=== PATIENT | male | born 1960 | race African-American/Black ===

== ENCOUNTER 2017-01-16 15:11 | Inpatient (IN) ==
--- NOTE | 2017-01-15 21:38 | Discharge Summary ---
<America Day - Last Filed: 01/15/17 21:35> Date of Encounter: 01/15/17 - Discharge Diagnosis (1) Arthritis of left hip Priority: Primary Status: Acute (2) HTN (hypertension) Priority: Secondary Status: Chronic Qualifiers: Hypertension type: essential hypertension Qualified Code(s): I10 - Essential (primary) hypertension (3) Obesity Priority: Secondary Status: Chronic Qualifiers: Obesity type: unspecified obesity type Obesity severity: morbid Qualified Code(s): E66.01 - Morbid (severe) obesity due to excess calories (4) HLD (hyperlipidemia) Priority: Secondary Status: Chronic Qualifiers: Hyperlipidemia type: unspecified Qualified Code(s): E78.5 - Hyperlipidemia , unspecified - Discharge Medications Home Medications: Allopurinol [Zyloprim 100 MG] 100 mg PO DAILY 01/16/17 [History] Atenolol/Chlorthalidone [Tenoretic 50 Tablet] 1 each PO DAILY 01/16/17 [History] Atorvastatin Calcium [Lipitor] 20 mg PO HS 01/16/17 [History] Ergocalciferol (VITAMIN D2) [Vitamin D2] 50,000 unit PO QWEEK 01/16/17 [History] Allergies/Adverse Reactions: Allergies codeine Allergy (Verified 01/16/17 16:15) See Comments unknown Primary care physician: Barb Humphreys CNP - Patient Status Disposition: Home, Self-Care Condition: Good - Discharge Instructions Follow Up With: Yang Dewey MD [Partnered Physician] - 02/14/17 8:50 am America Day PAC [Physician Container Repairer] - 01/26/17 3:00 pm Barb Humphreys CNP [Primary Care Provider] - Additional Instructions: Discharge Instructions: Total Hip Replacement Please call [facility] ([phone]), your Primary Care Physician, or report to the Emergency Room if you have any of the following symptoms: Nausea, vomiting, fever greater that 101.5, swelling, chest pain, shortness of breath, increased pain/redness/drainage/odor for your incision site, numbness/ tingling, or any other concerning symptoms. ACTIVITY:Weight-bearing as tolerated for 8 weeks with hip dislocation precautions that physical therapy taught you. You may progress as tolerated under the guidance of your physical therapist. You do not need to sleep with a pillow between your legs. You can also seep on the operative side or on your stomach. MEDICATIONS: Upon discharge resume your home medications. Take all the medications as prescribed. Take a stool softener if taking narcotic pain medications. Stool softeners are only effective if you drink enough fluids. Drink 6-8 glass of water or fluids a day, unless this is not allowed for another health problem. Despite using stool softeners, if you haven't had a bowel movement in 3 days, please switch to a gentle laxative. Gentle laxatives are sold over the counter. You should have a bowel movement within 24 hours, if not call the office. You will be discharged from the hospital with a prescription for pain medication. You are encouraged to decrease the use of narcotic pain medication as tolerated. Should you require a refill, please call the office. [facility] prescribes narcotic pain medication for only 4-6 weeks after surgery. If you require pain medication beyond this time period, you may be referred to your Primary Care Physician or to the Pain Clinic for further evaluation. Plan ahead for refills on pain medication as many narcotics either need to be picked up at the office or mailed. It is best to call 48-72 hours in advance of needing a prescription refill so you don't run out of medication. To help control the post-operative pain, you may take NSAIDs (Aleve,Advil, Motrin, ibuprofen, naprosyn) or Tylenol as prescribed on the bottle in addition to the pain medication. ANTICOAGULATION (blood thinners): Continue your Aspirin, Lovenox or Coumadin as prescribed to help prevent a blood clot in the leg or in the lungs. As long as your incision remains dry and you tolerate the NSAIDs (Aleve, Advil, Motrin, Ibuprofen, Naprosyn), it is OK to use the NSAIDS while you are taking your anticoagulation medication. Should your incision start to drain, stop the NSAID and contact our office. Common symptoms of blood clot in the legs include: localized pain, swelling, calf tenderness, redness or discoloration of the skin. Blood clot in the lung symptoms include: shortness of breath, rapid pulse, sweating, and chest pain that worsens with deep breathing, coughing up blood, lightheadedness, feelings of anxiety. If you experience any of these symptoms notify your physician immediately, go to the emergency room, or if having trouble breathing, call 911. WOUND CARE: Leave the dressing on for 7 to 10days. You may change the dressing if it is saturated greater than 50%. Do not get the dressing wet at anytime. Wash your hands with antibacterial soap, rinse and dry prior to any wound care. If you have fabio the visiting nurse or rehab facility can remove the stapes 10-14 days after surgery and place steri-strips across the wound. Leave the steri-strips in place until they fall off on their own. You may let water from the shower run on top of the steri-strips. If you do not have a visiting nurse or rehab facility, you will need to return to the office at 10-14 days for the fabio to be removed. If you have itching or redness around the dressing call the office. FOLLOW-UP: Please follow up with your surgeon in the orthopedic clinic in 6 weeks from the day of surgery. If you have fabio that need to be removed, you will need to come back to the office in 10-14 days from the day of surgery. - Hospital Course Hospital course: Mr. Gallardo is a 56 year old male - Time Spent with Patient Total time spent providing and/or coordinating discharge services: <Yang Dewey - Last Filed: 01/18/17 08:06> Date of Encounter: 01/18/17 Time of Encounter: 08:06 - Discharge Diagnosis (1) Arthritis of left hip Priority: Primary Status: Acute (2) HTN (hypertension) Priority: Secondary Status: Chronic Qualifiers: Hypertension type: essential hypertension Qualified Code(s): I10 - Essential (primary) hypertension (3) Obesity Priority: Secondary Status: Chronic Qualifiers: Obesity type: unspecified obesity type Obesity severity: morbid Qualified Code(s): E66.01 - Morbid (severe) obesity due to excess calories (4) HLD (hyperlipidemia) Priority: Secondary Status: Chronic Qualifiers: Hyperlipidemia type: unspecified Qualified Code(s): E78.5 - Hyperlipidemia , unspecified (5) Chronic renal insufficiency, stage III (moderate) Priority: Secondary Status: Chronic Primary care physician: Barb Humphreys CNP - Patient Status Functional capacity at discharge: uses cane/walker Overall status at discharge: patient is progressing back to baseline - Hospital Course Hospital course: Mr. Gallardo is a 56 year old male The patient had an uneventful postoperative course. They received antibiotics and physical therapy and were discharged in stable condition. There will follow -up in the office in 2 weeks. Aspirin DVT prophylaxis - Time Spent with Patient Total time spent providing and/or coordinating discharge services:
--- NOTE | 2017-01-16 15:20 | History & Physical Report ---
Date of Encounter: 01/16/17 Time of Encounter: 15:19 24 Hour HP Update - Instructions Instructions: If the History and Physical is less than 30 days old and was completed prior to A.M. admission and or procedure and has NOT been updated on calendar day of procedure please complete this update prior to performing procedure. - Update Patient reports changes in Medical Condition: No Changes in examination, assessment, or condition: No Changes in Medication: No Preop tests/diagnostics Reviewed: Yes Surgery Remains Indicated: Yes Consent for Planned Operative Procedure(s) Verified: Yes - Pre-Operative Checklist Preoperative Checklist Indicated: No Prophylactic Antibiotic Ordered: Yes Is VTE Prophylaxis Indicated?: Yes
[2017-01-16] MEDS ORDERED: Lidocaine -MPF 1% 2 ML VIAL ID ONE (15:34)
[2017-01-16] MEDS ORDERED: CeFAZolin Pre 3,000 MG/100 ML 3,000 MG/100 ML BAG IVPB ONE (15:34)
[2017-01-16] MEDS ORDERED: Famotidine 20 MG/2 ML VIAL IVP ONE (15:38)
[2017-01-16] MEDS ORDERED: Gabapentin 300 MG CAPSULE PO ONE (15:38)
[2017-01-16] MEDS ORDERED: Ondansetron 4 MG/2 ML VIAL ONE (15:39)
[2017-01-16] MEDS ORDERED: *HR* Succinylcholine 200 MG/10 ML VIAL IVP ONE (15:39)
[2017-01-16] MEDS ORDERED: Lidocaine -MPF 4% 5 ML AMPUL ONE (15:39)
[2017-01-16] MEDS ORDERED: *HR* FentaNYL (PF) 100 MCG/2 ML VIAL ONE ×2 (15:39→16:57)
[2017-01-16] MEDS ORDERED: *HR* Propofol 200 MG/20 ML VIAL IVP ONE (15:39)
[2017-01-16] MEDS ORDERED: Lidocaine -MPF 2% 2 ML VIAL ONE (15:39)
[2017-01-16] MEDS ORDERED: Dexamethasone 4 MG/ML VIAL ONE (15:39)
[2017-01-16] MEDS ORDERED: *HR* Midazolam HCl 2 MG/2 ML VIAL ONE (15:39)
[2017-01-16] MEDS ORDERED: Ringers Solution, Lactated 1,000 ML IVC SCH ×2 (15:45→20:38)
--- NOTE | 2017-01-16 15:53 | Anesthesia Evaluation PreOp ---
Date of Encounter: 01/16/17 Time of Encounter: 15:51 - Past History Planned Operation: l ignacia Cardiac History: HTN Pulmonary History: Denies Any Significant HX HAND OR MACHINE PASTER History: Denies Any Significant HX Other Medical History: Renal (cri) Anesthesia History: No Prior Anesthetic Complications, Past Anesthesia (r ignacia, bilat knee arth) Alcohol Use: none Drug use: none Medications and Allergies Aspirin Enteric Coated [Aspirin EC] 325 mg PO DAILY #21 tablet. 01/15/17 [Rx] OxyCODONE Immed Rel [Roxicodone 5 MG] 5 - 10 mg PO Q6HR PRN #40 tablet 01/15/17 [Rx] Allergies codeine Allergy (Unverified 01/05/17 13:38) See Comments unknown - Meds/Allergy Pre-op Review Medications Reviewed: Yes Allergies Reviewed: Yes Beta Blockers on Current Med List: Yes If Beta Blockers taken, Date/Time (Last Dose taken): atenolol at 1500 Anesthesia Results - Labs Laboratory Tests 01/05/17 01/05/17 01/05/17 14:00 14:00 14:00 Hgb 14.3 Hct 45.2 Plt Count 283 PT 11.2 INR 1.0 APTT 31.5 Sodium 141 Potassium 4.0 Creatinine 1.92 H - Imaging EKG: report reviewed (sr, mod ivcd) Anesthesia Exam O2 Sat Height 1.83 m Height 1.83 m Weight 164.711 kg Weight 164.711 kg O2 Sat by Pulse Oximetry 96 Vital Signs Temp Pulse Resp BP Pulse Ox 98.1 F 69 16 142/89 96 01/16/17 16:00 01/16/17 16:00 01/16/17 16:00 01/16/17 16:00 01/16/17 16:00 Height: 1.83 Weight: 164 NPO (# of Hours): >8 - HEENT Pupil (Motor): Pupils equal, EOMI Mallampati: II Teeth: Poor dentition Oral Opening: Greater than 3 - HAND OR MACHINE PASTER LOC: Oriented HAND OR MACHINE PASTER Motor: Normal RUE, Normal LUE, Normal RLE, Normal LLE, Normal Face HAND OR MACHINE PASTER Sensory: Normal: RUE, LUE, RLE, LLE, Face - Cardiac Rhythm: Regular Murmur: None - Pulmonary Breath Sounds: bilateral Clear Respiratory Effort: Symmetrical Anesthesia Assess/Plan ASA Score: 3 Modified Twining Scale for Level of Consciousness: Cooperative, oriented, and tranquil Anesthetic Plan: General Monitoring Plan: Standard Monitors Recovery Plan: PACU
[2017-01-16] MEDS ORDERED: *HR* HYDROmorphone 2 MG/ML SYRINGE ONE (17:19)
[2017-01-16] MEDS ORDERED: *HR* HYDROmorphone (PF) 1 MG/ML SYRINGE IVP PRN ×2 (17:25→20:38)
[2017-01-16] MEDS ORDERED: Ondansetron 4 MG/2 ML VIAL IVP PRN ×2 (17:25→20:38)
[2017-01-16] MEDS ORDERED: *HR* Enoxaparin 30 MG/0.3 ML SYRINGE SQ SCH (18:00)
--- NOTE | 2017-01-16 18:20 | Orthopedic Operative Note ---
Date of procedure: 01/16/17 Pre-op diagnosis: Left hip arthritis Post-op diagnosis: same (Morbid obesity) Procedure: Procedure: Left Total Hip Replacment Estimated blood loss: 1000 cc Hardware: Biomet DM Cup: 58 G7 fin cup Femoral size15 echo full profile lateralized stem Head: 6 head with Melody Procedural Notes: Grade 4 arthritic changes femoral head and acetabulum, massive morbid obesity Operative procedure: The patient was brought to the operating room and placed on the operating room table. After general anesthesia was administered the patient was placed in the lateral decubitus position with the operative leg up. All pressure points were padded appropriately and the head was stabilized in the neutral position. The operative extremity was prepped and draped in the sterile surgical fashion patient received IV antibiotic prior to skin incision. A standard posterior approach is made to the operative hip, the incision was made through the skin and subcutaneous tissue hemostasis was obtained with Bovie cautery. Using careful sharp dissection the fascia was identified and incised exposing the external rotators. The external rotators were released off the greater trochanter and tagged with #2 FiberWire suture. The capsule was T'd open and the hip was brought into internal rotation. Patient noted to have grade 4 arthritic changes femoral head. The femoral neck cut was made at the appropriate level. An anterior capsulotomy was performed for the anterior retractor. Soft tissues removed from the acetabulum. Patient noted to have grade 4 arthritic changes acetabulum. Acetabulum was first reamed medially, and then reamed in 15 degrees of anteversion and 45 degrees off the horizontal. It was reamed up to the appropriate size 58. The appropriate-sized 58 acetabular cup was impacted in place in 15 degrees of anteversion and 45 degrees off the horizontal. This had good fit and fixation. The hip was brought back in to internal rotation and prepared with the spreader box operator followed by the canal finder followed by broaching process in 20 degrees anteversion. It was broached up to the appropriate size 15. The femoral implant was impacted in place in 20 degrees of anteversion. Trial reduction found the hip to be stable with 6 head and Melody. The trials were removed and the real implants were impacted in place. The hip was reduced, patient had apparent equal leg lengths. The hip had excellent stability with forward flexion to 90 degrees adduction of 30 degrees and internal rotation of 60 degrees. The hip had no shuck. The hips after 2 minutes with a Betadine saline solution. It was irrigated out with 2 L of pulse irrigation. The external rotators were reattached to drill holes in the greater trochanter. Fascia was closed with a running #2 PDS suture. The deep tissue was irrigated and closed deep with #1 PDS suture superficially with 0 PDS suture and skin was closed with Dermabond and skin fabio. The patient was placed in a sterile dressing and abduction pillow. The patient was extubated and transferred to the recovery room in stable condition. Anesthesia: VALORIE Surgeon: Yang Dewey Wharf Laborer: America Day Condition: stable Disposition: PACU
[2017-01-16] MEDS ORDERED: Ketorolac 30 MG/ML VIAL ONE (19:05)
[2017-01-16] MEDS ORDERED: Acetaminophen IV 1,000 MG/100 ML INFUS..BTL ONE (19:06)
[2017-01-16 19:22] LABS: Hematocrit 40.7 % (37.5-50.1); Hemoglobin 12.4 g/dL (12.9-16.9)
--- NOTE | 2017-01-16 20:03 | Anesthesia Evaluation Post Op ---
Date of Encounter: 01/16/17 Time of Encounter: 19:45 - Vital Signs Vital Signs: Vital Signs/O2 Sat/Glucose, Most Current Temp Pulse Resp BP Pulse Ox 01/16/17 19:35 62 16 133/96 99 01/16/17 19:25 62 16 143/93 96 01/16/17 19:15 97.9 F 65 16 123/72 96 01/16/17 19:05 67 16 114/81 96 01/16/17 18:55 68 16 96/75 96 01/16/17 18:45 97.1 F L 68 16 110/88 96 - Lungs Lungs: Clear Ascult./Percussion - Airway Airway: Non-obstructed - Cardiovascular Regular Rate - Mental Status Mental Status: Asleep with brisk response to light stimulation - Pain Pain Scale: 1 Pain Scale used: Crews-Houser (Faces) - Nausea Vomiting Nausea Vomiting: Not Present - Hydration Hydration: Tolerates oral liquids, Has not voided - Discharge PostOp Status: Transfer Patient to floor Anes Supervising Prov Stmt: PT seen/evaluated, VSS And pt has met criteria for discharge to home. - MD Eleuterio
[2017-01-16] MEDS ORDERED: *HR* OxyCODONE Immed Rel 5 MG TABLET PO PRN ×2 (20:38)
[2017-01-16] MEDS ORDERED: ceFAZolin 3,000 MG in D5% in Water 100 ML IVPB SCH (20:38)
[2017-01-16] MEDS ORDERED: Sennosides 8.6 MG TABLET PO PRN (20:38)
[2017-01-16] MEDS ORDERED: Temazepam 15 MG CAPSULE PO PRN (20:38)
[2017-01-16] MEDS ORDERED: Naloxone 0.4 MG/ML INJ IVP PRN (20:38)
[2017-01-16] MEDS ORDERED: MOM Conc 10 ML UD.LIQ PO PRN (20:38)
[2017-01-16] MEDS: Cholecalciferol (D-3) 1,000 UNIT TABLET PO SCH ×2 (21:58→22:01)
[2017-01-16] MEDS: Ascorbic Acid 500 MG TABLET PO SCH (21:58)
[2017-01-16] MEDS: ceFAZolin 3,000 MG in D5% in Water 100 ML IVPB SCH (22:02)
[2017-01-17] MEDS: ceFAZolin 3,000 MG in D5% in Water 100 ML IVPB SCH (05:41)
[2017-01-17] MEDS: *HR* Enoxaparin 30 MG/0.3 ML SYRINGE SQ SCH ×2 (05:42→17:08)
--- NOTE | 2017-01-17 06:22 | Orthopedics Progress Note ---
Date of Encounter: 01/17/17 Time of Encounter: 06:22 - Assessment and Plan (1) Arthritis of left hip Current Visit: Yes Status: Acute (2) HTN (hypertension) Current Visit: Yes Status: Chronic Qualifiers: Hypertension type: essential hypertension Qualified Code(s): I10 - Essential (primary) hypertension (3) Obesity Current Visit: Yes Status: Chronic Qualifiers: Obesity type: unspecified obesity type Obesity severity: morbid Qualified Code(s): E66.01 - Morbid (severe) obesity due to excess calories (4) HLD (hyperlipidemia) Current Visit: Yes Status: Chronic Qualifiers: Hyperlipidemia type: unspecified Qualified Code(s): E78.5 - Hyperlipidemia , unspecified Subjective Interval history: Patient was seen this morning doing well without complaints. Afebrile vital signs stable. Operative extremity: Neurovascularly intact Dressing clean dry and intact Calves nontender Assessment and plan: Continue with postoperative care Hematocrit 40 Objective Vital signs: Vital Signs Temp Pulse Resp BP Pulse Ox 01/17/17 05:18 97.7 F 55 15 147/74 99 01/17/17 00:04 97.7 F 54 16 141/91 96 01/16/17 22:25 97.9 F 62 14 112/73 97 01/16/17 21:30 98 F 57 16 122/61 96 01/16/17 21:10 97.8 F 59 16 122/64 96 01/16/17 21:03 97.9 F 58 12 126/61 01/16/17 20:35 97.9 F 58 12 126/61 94 01/16/17 19:45 97.9 F 62 16 123/74 96 01/16/17 19:35 62 16 133/96 99 01/16/17 19:25 62 16 143/93 96 01/16/17 19:15 97.9 F 65 16 123/72 96 01/16/17 19:05 67 16 114/81 96 01/16/17 18:55 68 16 96/75 96 01/16/17 18:45 97.1 F L 68 16 110/88 96 01/16/17 16:00 98.1 F 69 16 142/89 96 Intake and Output 01/16/17 01/16/17 01/17/17 15:59 23:59 07:59 Intake Total 300 / 300 430 / 430 Output Total 1000 / 1000 Balance -700 / -700 430 / 430 Intake: IV Fluids 300 / 300 Ofirmev 1,000 mg/100 ml 1 100 / 100 ,000 mg In 100 ml As . ROUTE .STK-MED ONE Rx#: [id number] Ancef 3,000 MG In 100 / 100 Dextrose 5% 100 ML @ 200 mls/hr IVPB Q8H IZA Rx#: [id number] Ancef Premix 3,000 MG/100 100 / 100 ML 3,000 mg In 100 ml @ 200 mls/hr IVPB PREOP ONE Rx#:[id number] Oral 430 / 430 Output: Estimated Blood Loss 1000 / 1000 Other: Weight 164.711 kg 164.711 kg - Labs CBC & BMP: 01/16/17 19:11 Labs: Abnormal lab results Hgb 12.4 g/dL (12.9-16.9) L 01/16/17 19:11 - VTE Documentation of Mechanical Device: Venous foot pump, device Consult Discharge Plan - Plan Referrals: Barb Humphreys CNP [Primary Care Provider] -
[2017-01-17 06:35] LABS: Hematocrit 39.1 % (37.5-50.1)
[2017-01-17 06:39] LABS: Calcium 9.3 mg/dL (8.6-10.8); Potassium 4.9 mEq/L (3.5-4.5)
[2017-01-17] MEDS: Multivit/Ca/Min/Fe/FA 1 TAB TABLET PO SCH (07:23)
[2017-01-17] MEDS: Ascorbic Acid 500 MG TABLET PO SCH ×2 (07:23→17:07)
[2017-01-17] MEDS: Cholecalciferol (D-3) 1,000 UNIT TABLET PO SCH ×2 (22:55)
[2017-01-18 05:25] LABS: Hematocrit 32.8 % (37.5-50.1)
[2017-01-18 05:26] LABS: Hemoglobin 10.3 g/dL (12.9-16.9)
[2017-01-18] MEDS: *HR* Enoxaparin 30 MG/0.3 ML SYRINGE SQ SCH (05:28)
[2017-01-18 05:35] LABS: Calcium 9.4 mg/dL (8.6-10.8); Potassium 3.7 mEq/L (3.5-4.5)
[2017-01-18] MEDS: Multivit/Ca/Min/Fe/FA 1 TAB TABLET PO SCH (07:52)
[2017-01-18] MEDS: Ascorbic Acid 500 MG TABLET PO SCH (07:52)
--- NOTE | 2017-01-18 08:07 | Orthopedics Progress Note ---
Date of Encounter: 01/18/17 Time of Encounter: 08:07 - Assessment and Plan (1) Arthritis of left hip Current Visit: Yes Status: Acute (2) HTN (hypertension) Current Visit: Yes Status: Chronic Qualifiers: Hypertension type: essential hypertension Qualified Code(s): I10 - Essential (primary) hypertension (3) Obesity Current Visit: Yes Status: Chronic Qualifiers: Obesity type: unspecified obesity type Obesity severity: morbid Qualified Code(s): E66.01 - Morbid (severe) obesity due to excess calories (4) HLD (hyperlipidemia) Current Visit: Yes Status: Chronic Qualifiers: Hyperlipidemia type: unspecified Qualified Code(s): E78.5 - Hyperlipidemia , unspecified (5) Chronic renal insufficiency, stage III (moderate) Current Visit: Yes Status: Chronic Subjective Interval history: Patient was seen this morning doing well without complaints. Afebrile vital signs stable. Operative extremity: Neurovascularly intact Dressing clean dry and intact Calves nontender Assessment and plan: Continue with postoperative care Hematocrit 32 discharged today Objective Vital signs: Vital Signs Temp Pulse Resp BP Pulse Ox 01/18/17 06:58 98.9 F 64 16 127/73 96 01/18/17 03:40 99.0 F 66 12 132/69 95 01/17/17 23:32 99.7 F H 72 16 148/52 96 01/17/17 19:41 99.5 F 01/17/17 19:27 100.5 F H 77 16 124/63 97 01/17/17 15:50 99.4 F 68 18 130/80 97 01/17/17 11:20 98.6 F 59 18 126/72 99 Intake and Output 01/17/17 01/18/17 01/18/17 23:59 07:59 15:59 Intake Total 600 / 600 670 / 670 Output Total 750 / 750 950 / 950 Balance -150 / -150 -280 / -280 Intake: Oral 600 / 600 670 / 670 Output: Urine 750 / 750 950 / 950 Other: Meal Dinner Percent of Meal Consumed 80% - Labs CBC & BMP: 01/18/17 04:03 01/18/17 04:03 Labs: Abnormal lab results Hgb 10.3 g/dL (12.9-16.9) L D 01/18/17 04:03 Hct 32.8 % (37.5-50.1) L 01/18/17 04:03 BUN 44 mg/dL (8-26) H D 01/18/17 04:03 Creatinine 2.35 mg/dL (0.72-1.25) H 01/18/17 04:03 Est GFR ( Amer) 35 (> 60) L 01/18/17 04:03 Est GFR (Non-Af Amer) 29 (> 60) L 01/18/17 04:03 Glucose 133 mg/dL (70-99) H 01/18/17 04:03 Calculated Osmolality 301 (280-300) H 01/18/17 04:03 - VTE Documentation of Mechanical Device: Venous foot pump, device Consult Discharge Plan - Plan Additional Instructions: Discharge Instructions: Total Hip Replacement Please call [facility] ([phone]), your Primary Care Physician, or report to the Emergency Room if you have any of the following symptoms: Nausea, vomiting, fever greater that 101.5, swelling, chest pain, shortness of breath, increased pain/redness/drainage/odor for your incision site, numbness/ tingling, or any other concerning symptoms. ACTIVITY:Weight-bearing as tolerated for 8 weeks with hip dislocation precautions that physical therapy taught you. You may progress as tolerated under the guidance of your physical therapist. You do not need to sleep with a pillow between your legs. You can also seep on the operative side or on your stomach. MEDICATIONS: Upon discharge resume your home medications. Take all the medications as prescribed. Take a stool softener if taking narcotic pain medications. Stool softeners are only effective if you drink enough fluids. Drink 6-8 glass of water or fluids a day, unless this is not allowed for another health problem. Despite using stool softeners, if you haven't had a bowel movement in 3 days, please switch to a gentle laxative. Gentle laxatives are sold over the counter. You should have a bowel movement within 24 hours, if not call the office. You will be discharged from the hospital with a prescription for pain medication. You are encouraged to decrease the use of narcotic pain medication as tolerated. Should you require a refill, please call the office. [facility] prescribes narcotic pain medication for only 4-6 weeks after surgery. If you require pain medication beyond this time period, you may be referred to your Primary Care Physician or to the Pain Clinic for further evaluation. Plan ahead for refills on pain medication as many narcotics either need to be picked up at the office or mailed. It is best to call 48-72 hours in advance of needing a prescription refill so you don't run out of medication. To help control the post-operative pain, you may take NSAIDs (Aleve,Advil, Motrin, ibuprofen, naprosyn) or Tylenol as prescribed on the bottle in addition to the pain medication. ANTICOAGULATION (blood thinners): Continue your Aspirin, Lovenox or Coumadin as prescribed to help prevent a blood clot in the leg or in the lungs. As long as your incision remains dry and you tolerate the NSAIDs (Aleve, Advil, Motrin, Ibuprofen, Naprosyn), it is OK to use the NSAIDS while you are taking your anticoagulation medication. Should your incision start to drain, stop the NSAID and contact our office. Common symptoms of blood clot in the legs include: localized pain, swelling, calf tenderness, redness or discoloration of the skin. Blood clot in the lung symptoms include: shortness of breath, rapid pulse, sweating, and chest pain that worsens with deep breathing, coughing up blood, lightheadedness, feelings of anxiety. If you experience any of these symptoms notify your physician immediately, go to the emergency room, or if having trouble breathing, call 911. WOUND CARE: Leave the dressing on for 7 to 10days. You may change the dressing if it is saturated greater than 50%. Do not get the dressing wet at anytime. Wash your hands with antibacterial soap, rinse and dry prior to any wound care. If you have fabio the visiting nurse or rehab facility can remove the stapes 10-14 days [address] surgery [address] steri-strips across the wound. Leave the steri-strips in place until they fall off on their own. You may let water from the shower run on top of the steri-strips. If you do not have a visiting nurse or rehab facility, you will need to return to the office at 10-14 days for the fabio to be removed. If you have itching or redness around the dressing call the office. FOLLOW-UP: Please follow up with your surgeon in the orthopedic clinic in 6 weeks from the day of surgery. If you have fabio that need to be removed, you will need to come back to the office in 10-14 days from the day of surgery. Referrals: Yang Dewey MD [Partnered Physician] - 02/14/17 8:50 am America Day PAC [Physician Side Stitching Machine Operator] - 01/26/17 3:00 pm Barb Humphreys CNP [Primary Care Provider] -
[2017-01-18 11:12] VITALS: BP 123/72
== END 2017-01-18 12:26 | disposition home or self-care (01) | DRG 470 ==
LOC: SAMDAY 15:11 → 3NENU 20:06
PROVIDERS: ADMIT Orthopaedic Surgery; ATTEND Orthopaedic Surgery

== ENCOUNTER 2017-08-14 07:42 | Inpatient (IN) ==
[2017-08-14 09:29] LABS: Basophils # 0.1 K/mcL (0.0-0.2); Basophils % 0.7 %; Eosinophils # 0.2 K/mcL (0.0-0.6); Eosinophils % 2.8 %; Hematocrit 42.6 % (37.5-50.1); Hemoglobin 13.2 g/dL (12.9-16.9); Immature Granulocytes % 0.5 % (0-4); Lymphocytes # 2.2 K/mcL (0.6-4.6); Mean Corpuscular Hemoglobin 24.5 pg (28.0-33.3); Monocytes # 0.6 K/mcL (0.0-1.3); Neutrophils # 4.4 K/mcL (1.6-8.9); Platelet Count 276 K/mcL (140-400); Red Blood Count 5.39 M/mcL (4.19-5.50); Red Cell Distribution Width 17.5 % (11.5-14.5)
[2017-08-14 09:36] LABS: INR 1.1; Prothrombin Time 11.7 Seconds (9.4-12.1)
[2017-08-14 09:41] LABS: Calcium 10.3 mg/dL (8.6-10.8); Potassium 3.5 mEq/L (3.5-4.5)
--- NOTE | 2017-08-14 16:16 | Anesthesia Evaluation PreOp ---
Date of Encounter: 08/14/17 Time of Encounter: 16:02 - Past History Planned Operation: L-Hip Revision Cardiac History: HTN Other Medical History: Renal (CKD - stage I), Other (Gout. MO/BMI = 43) Anesthesia History: Past Anesthesia (R-Hip replacement 2004 ,B-knee scopes 2008) Alcohol Use: none Drug use: none Medications and Allergies Allopurinol [Zyloprim 100 MG] 100 mg PO DAILY 01/16/17 [History] Atenolol/Chlorthalidone [Tenoretic 50 Tablet] 1 each PO DAILY 01/16/17 [History] 3 Allergy/AdvReac Type Severity Reaction Status Date / Time codeine Allergy See Verified 01/16/17 16:15 Comments - Meds/Allergy Pre-op Review Medications Reviewed: Yes Allergies Reviewed: Yes Beta Blockers on Current Med List: No Anesthesia Results - Labs 08/14/17 09:18 08/14/17 09:18 - Imaging EKG: image reviewed (60bpm, SR, moderate intraventricular conduction delay, Non- specific T-wave abnl) Anesthesia Exam O2 Sat Height 1.83 m Weight 164.654 kg Weight 164.654 kg O2 Sat by Pulse Oximetry 98 O2 Sat by Pulse Oximetry 96 Vital Signs Temp Pulse Resp BP Pulse Ox 98.5 F 62 18 134/85 96 08/14/17 08:49 08/14/17 08:49 08/14/17 08:49 08/14/17 08:49 08/14/17 08:49 Height: 6'0" Weight: 363# BMI = 49 - HEENT Pupil (Motor): Pupils equal, EOMI Mallampati: II Teeth: Edentulous (upper edentulous), Poor dentition - INSPECTOR WATCH ASSEMBLY LOC: Oriented INSPECTOR WATCH ASSEMBLY Motor: Normal RUE, Normal LUE, Normal RLE, Normal LLE, Normal Face INSPECTOR WATCH ASSEMBLY Sensory: Normal: RUE, LUE, RLE, LLE, Face - Cardiac Rhythm: Regular Murmur: None - Pulmonary Breath Sounds: bilateral Clear Respiratory Effort: Symmetrical Anesthesia Assess/Plan ASA Score: 3 (MO, Gout,) Modified Tiff Scale for Level of Consciousness: Cooperative, oriented, and tranquil Anesthetic Plan: General Monitoring Plan: Standard Monitors Recovery Plan: PACU Anes Supervising Prov Stmt: Pt seen/evaluated, R&B discussed, questions answered and consent obtained. - MD Eleuterio
[2017-08-14] MEDS ORDERED: Ethanol\\Acetic Acid\\Na Ace\\Ben 1,000 ML IRRIG.SOLN IR ONE (16:18)
[2017-08-14] MEDS ORDERED: *HR* Succinylcholine 200 MG/10 ML VIAL IVP ONE (16:20)
[2017-08-14] MEDS ORDERED: *HR* Midazolam HCl 2 MG/2 ML VIAL ONE (16:20)
[2017-08-14] MEDS ORDERED: *HR* FentaNYL (PF) 100 MCG/2 ML VIAL ONE (16:20)
[2017-08-14] MEDS ORDERED: Lidocaine -MPF 2% 2 ML VIAL ONE (16:20)
[2017-08-14] MEDS ORDERED: Dexamethasone 4 MG/ML VIAL ONE (16:20)
[2017-08-14] MEDS ORDERED: Ondansetron 4 MG/2 ML VIAL ONE (16:20)
[2017-08-14] MEDS ORDERED: *HR* Propofol 200 MG/20 ML VIAL IVP ONE (16:21)
[2017-08-14] MEDS ORDERED: Acetaminophen IV 0 MG/0 ML INFUS..BTL ONE (17:16)
[2017-08-14] MEDS ORDERED: *HR* HYDROmorphone 2 MG/ML SYRINGE ONE (17:40)
[2017-08-14] MEDS ORDERED: Ketamine *HR* 500 MG/10 ML MDV ONE (17:44)
[2017-08-14] MEDS ORDERED: Ondansetron 4 MG/2 ML VIAL IVP ONE (17:56)
[2017-08-14] MEDS ORDERED: Ringers Solution, Lactated 1,000 ML IVC SCH (18:00)
[2017-08-14 19:40] LABS: Basophils # 0.1 K/mcL (0.0-0.2); Basophils % 0.4 %; Eosinophils # 0.3 K/mcL (0.0-0.6); Eosinophils % 1.9 %; Hematocrit 36.5 % (37.5-50.1); Immature Granulocytes % 1.3 % (0-4); Lymphocytes # 2.8 K/mcL (0.6-4.6); Lymphocytes % 21.4 %; Mean Corpuscular Hemoglobin 24.7 pg (28.0-33.3); Mean Corpuscular Volume 79.9 fL (83.0-100.0); Mean Platelet Volume 10.6 fL (9.4-12.4); Monocytes # 0.9 K/mcL (0.0-1.3); Monocytes % 7.1 %; Platelet Count 292 K/mcL (140-400); Red Blood Count 4.57 M/mcL (4.19-5.50); Red Cell Distribution Width 17.2 % (11.5-14.5); Segmented Neutrophils % 67.9 %
[2017-08-14 19:41] LABS: Hemoglobin 11.3 g/dL (12.9-16.9)
--- NOTE | 2017-08-14 19:44 | Orthopedic Operative Note ---
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 Biomet dual mobility: Acetabular cup 66, 7 6.5 screws, [id number] Nicole stem, D 60 mm body +3 head with poly- Procedural Notes: Loose femoral stem and acetabulum protrusion.. Operative procedure: The patient was brought to the operating room and placed on the operating room table. After general anesthesia was administered the patient was placed in the [id number] left side up lateral decubitus position with the operative leg up. All pressure points were padded appropriately and the head was stabilized in the neutral position. The left operative extremity was prepped and draped in the sterile surgical fashion patient received IV antibiotic prior to skin incision. A standard posterior approach is made to the operative hip, through the old incision. The incision was made through the skin and subcutaneous tissue hemostasis was obtained with Bovie cautery. Using careful sharp dissection the fascia was identified and incised patient had significant scar tissue within the posterior aspect. This was resected. Cultures were obtained at the hip joint, normal joint fluid was encountered, the hip was dislocated. Hip was brought into internal rotation. Soft tissue was removed from around the proximal femur. The femoral component was grossly loose. The component was removed without incident. Attention was then turned to the acetabulum. Extensive soft tissue was removed around the acetabulum. Acetabulum was protruded careful use of explant devices were used to remove the acetabular component. There was no obvious defect of the medial wall but it was definitely soft. The hip was reamed in 15 degrees of anteversion and 40 degrees off horizontal up to a size 65. A 66 revision multihole cup was impacted in place in 15 degrees of anteversion and 45 degrees off the horizontal. This had good fixation. Fixation was augmented with 76.5 screws. These were drilled very carefully and there is no flash of bleeding after any screw placed. Patient was stable throughout this portion of the procedure. The liner was impacted in place. Attention was then turned to the femur. The femur was reamed distally up to a size 19 x 150, the stem was impacted in place. Trial reduction with a D 60 cone body revealed the hip to be relocatable. The real D 60 cone body was impacted in place in 20 degrees of anteversion trial reduction revealed excellent stability with a +3 metal head with the appropriate poly-. The trials were removed and the real implants were impacted in place. The hip was reduced, patient had apparent equal leg lengths. The hip had excellent stability with forward flexion to 90 degrees adduction of 30 degrees and internal rotation of 60 degrees. The hip had no shuck. The hips sat for 2 minutes with a Betadine saline solution. It was irrigated out with 2 L of pulse irrigation. The hip was closed by the PA. Fascia was closed with a running #2 PDS suture. The deep tissue was irrigated and closed deep with #1 PDS suture superficially with 0 PDS suture and skin was closed with zip tie and skin fabio. The patient was placed in a sterile dressing and abduction pillow. The patient was extubated and transferred to the recovery room in stable condition. Anesthesia: VALORIE Surgeon: Yang Dewey Diesel Pile Hammer Operator: Jacqueline Vaca Condition: stable Disposition: PACU
[2017-08-14] MEDS: *HR* HYDROmorphone (PF) 1 MG/ML SYRINGE IVP PRN ×2 (20:35→20:46)
[2017-08-14 20:50] LABS: Hematocrit 33.1 % (37.5-50.1); Hemoglobin 10.2 g/dL (12.9-16.9)
--- NOTE | 2017-08-14 21:04 | Anesthesia Evaluation Post Op ---
Date of Encounter: 08/14/17 Time of Encounter: 21:03 - Vital Signs Vital Signs: Vital Signs/O2 Sat, Most Current Temp Pulse Resp BP Pulse Ox 97.7 F 80 21 125/78 95 08/14/17 20:44 08/14/17 20:54 08/14/17 20:54 08/14/17 20:54 08/14/17 20:54 - Lungs Lungs: Clear Ascult./Percussion - Airway Airway: Non-obstructed - Cardiovascular Regular Rate - Mental Status Mental Status: Asleep with brisk response to light stimulation - Pain Pain Scale: 5 Pain Scale used: Numeric (1 - 10) - Nausea Vomiting Nausea Vomiting: Not Present - Hydration Hydration: NPO, Has not voided - Discharge PostOp Status: Transfer Patient to floor
[2017-08-14] MEDS ORDERED: MOM Conc 10 ML UD.LIQ PO PRN (21:36)
[2017-08-14] MEDS ORDERED: *HR* OxyCODONE Immed Rel 5 MG TABLET PO PRN ×2 (21:36)
[2017-08-14] MEDS ORDERED: *HR* HYDROmorphone (PF) 1 MG/ML SYRINGE IVP PRN (21:36)
[2017-08-14] MEDS ORDERED: Naloxone 0.4 MG/ML INJ IVP PRN (21:36)
[2017-08-14] MEDS ORDERED: Temazepam 15 MG CAPSULE PO PRN (21:36)
[2017-08-14] MEDS ORDERED: Sennosides 8.6 MG TABLET PO PRN (21:36)
[2017-08-14] MEDS: Ondansetron 4 MG/2 ML VIAL IVP PRN (23:28)
[2017-08-14] MEDS: Ringers Solution, Lactated 1,000 ML IVC SCH (23:28)
[2017-08-15] MEDS: CeFAZolin Syr 3,000MG/30 ML 3,000 MG/30 ML SYRINGE IVPB SCH ×2 (00:23→08:21)
[2017-08-15 05:09] LABS: Hematocrit 33.8 % (37.5-50.1); Hemoglobin 10.3 g/dL (12.9-16.9)
[2017-08-15 05:18] LABS: Calcium 9.2 mg/dL (8.6-10.8); Potassium 3.9 mEq/L (3.5-4.5)
[2017-08-15] MEDS: Ondansetron 4 MG/2 ML VIAL IVP PRN (07:11)
--- NOTE | 2017-08-15 07:17 | Orthopedics Progress Note ---
Date of Encounter: 08/15/17 Time of Encounter: 07:16 Subjective Interval history: Patient was seen this morning doing well without complaints. Afebrile vital signs stable. Operative extremity: Neurovascularly intact Dressing clean dry and intact Calves nontender Assessment and plan: Continue with postoperative care Hematocrit 33 patient with loosening of acetabulum and femoral component will continue IV antibiotics until cultures results for fear of possible infectious process. Patient will be 50% weightbearing Objective Vital signs: Vital Signs Temp Pulse Resp BP Pulse Ox 08/15/17 03:33 98.0 F 81 16 119/80 98 08/15/17 00:21 97.9 F 81 20 119/76 98 08/14/17 23:24 97.7 F 82 18 115/74 98 08/14/17 22:18 97.6 F 79 18 125/78 99 08/14/17 21:47 97.7 F 80 20 111/72 98 08/14/17 21:18 98.5 F 76 20 118/76 94 08/14/17 21:04 98.3 F 79 20 118/71 95 08/14/17 20:54 80 21 125/78 95 08/14/17 20:44 97.7 F 80 24 123/76 96 08/14/17 20:34 82 24 114/88 98 08/14/17 20:24 87 24 96/58 96 08/14/17 20:14 98.6 F 86 24 114/62 96 08/14/17 10:38 98.4 F 60 18 124/82 98 08/14/17 08:49 98.5 F 62 18 134/85 96 Intake and Output 08/14/17 08/14/17 08/15/17 15:59 23:59 07:59 Intake Total 0 / 0 330 / 330 Output Total 200 / 200 1000 / 1000 450 / 450 Balance -200 / -200 -1000 / -1000 -120 / -120 Intake: IV Fluids 30 / 30 Ancef Syringe 3,000 MG/30 ML 3, 30 / 30 000 mg In 30 ml @ 200 mls/hr IVPB Q8HR [facility] Rx#:[id number] Oral 0 / 0 300 / 300 Output: Urine 200 / 200 0 / 0 350 / 350 Emesis 100 / 100 Estimated Blood Loss 1000 / 1000 Other: Weight 164.654 kg - Labs CBC & BMP: 08/15/17 04:45 08/15/17 04:45 Labs: Abnormal lab results WBC 13.2 K/mcL (4.3-11.1) H D 08/14/17 19:17 Hgb 10.3 g/dL (12.9-16.9) L 08/15/17 04:45 Hct 33.8 % (37.5-50.1) L 08/15/17 04:45 MCV 79.9 fL (83.0-100.0) L 08/14/17 19:17 MCH 24.7 pg (28.0-33.3) L 08/14/17 19:17 MCHC 31.0 g/dL (31.6-35.5) L 08/14/17 19:17 RDW 17.2 % (11.5-14.5) H 08/14/17 19:17 Neutrophils # 9.0 K/mcL (1.6-8.9) H 08/14/17 19:17 Carbon Dioxide 17 mEq/L (19-29) L 08/15/17 04:45 BUN 31 mg/dL (8-26) H 08/15/17 04:45 Creatinine 2.60 mg/dL (0.72-1.25) H 08/15/17 04:45 Est GFR ( Amer) 31 (> 60) L 08/15/17 04:45 Est GFR (Non-Af Amer) 25 (> 60) L 08/15/17 04:45 Glucose 317 mg/dL (70-99) H 08/15/17 04:45 Calculated Osmolality 311 (280-300) H 08/15/17 04:45 - VTE Documentation of Mechanical Device: Venous foot pump, device Consult Discharge Plan - Plan Referrals: Barb Humphreys, AMAYA [Primary Care Provider] -
[2017-08-15] MEDS: Ascorbic Acid 500 MG TABLET PO SCH ×3 (08:23→18:49)
[2017-08-15] MEDS: Multivit/Ca/Min/Fe/FA 1 TAB TABLET PO SCH ×2 (08:23→08:44)
[2017-08-15] MEDS ORDERED: VANCOMYCIN IVPB SCH (09:00)
[2017-08-15] MEDS ORDERED: D5 IVPB SCH (09:00)
[2017-08-15] MEDS ORDERED: Vancomycin (wt based) 1,000 MG VIAL IVPB SCH (09:00)
[2017-08-15] MEDS ORDERED: WATER IVPB SCH (09:00)
[2017-08-15] MEDS ORDERED: Vancomycin 2,000 MG in D5% in Water 500 ML IVPB ONE (09:00)
[2017-08-15] MEDS ORDERED: DAPTOmycin 1,000 MG in 0.9 % Sodium Chloride 100 ML IVPB SCH (10:00)
--- NOTE | 2017-08-15 14:01 | Event Note ---
Date of Encounter: 08/15/17 Time of Encounter: 12:45 PCR- POD#1 LEFT hip revision PCR - Patient seen at bedside. Pain control: Adequate Participating in PT. All questions and concerns addressed. Educated on use of incentive spirometer, ambulation, and hydration. Patient educated on post-operative restrictions and care. Addressed: see above. D/C plan: pending therapy recommendations
[2017-08-15] MEDS: *HR* Enoxaparin 30 MG/0.3 ML SYRINGE SQ SCH ×2 (18:48→19:21)
[2017-08-15] MEDS: Clindamycin 600 MG/50 ML 600 MG/50 ML IV.SOLN IVPB SCH (18:49)
[2017-08-16] MEDS: Clindamycin 600 MG/50 ML 600 MG/50 ML IV.SOLN IVPB SCH ×3 (01:15→18:15)
[2017-08-16] MEDS: Ringers Solution, Lactated 1,000 ML IVC SCH (01:18)
[2017-08-16] MEDS: *HR* Enoxaparin 30 MG/0.3 ML SYRINGE SQ SCH ×2 (05:28→18:15)
[2017-08-16 05:49] LABS: Hematocrit 22.6 % (37.5-50.1)
[2017-08-16 05:56] LABS: Hemoglobin 7.4 g/dL (12.9-16.9)
[2017-08-16 06:12] LABS: Calcium 9.4 mg/dL (8.6-10.8); Potassium 3.3 mEq/L (3.5-4.5)
--- NOTE | 2017-08-16 08:02 | Orthopedics Progress Note ---
Date of Encounter: 08/16/17 Time of Encounter: 08:02 - Assessment and Plan (1) Aseptic loosening of prosthetic hip Current Visit: Yes Status: Chronic Qualifiers: Encounter type: subsequent encounter Qualified Code(s): T84.038D - Mechanical loosening of other internal prosthetic joint, subsequent encounter; Z96.649 - Presence of unspecified artificial hip joint; Z96.649 - Presence of unspecified artificial hip joint (2) Morbid obesity with BMI of 45.0-49.9, adult Current Visit: Yes Status: Chronic (3) S/P revision of total hip Current Visit: Yes Status: Acute (4) Acute blood loss anemia Current Visit: Yes Status: Acute (5) HTN (hypertension) Current Visit: No Status: Chronic Qualifiers: Hypertension type: essential hypertension Qualified Code(s): I10 - Essential (primary) hypertension (6) HLD (hyperlipidemia) Current Visit: No Status: Chronic Qualifiers: Hyperlipidemia type: unspecified Qualified Code(s): E78.5 - Hyperlipidemia , unspecified (7) Chronic renal insufficiency, stage III (moderate) Current Visit: No Status: Chronic Subjective Interval history: Patient was seen this morning doing well without complaints. Afebrile vital signs stable. Operative extremity: Neurovascularly intact Dressing clean dry and intact Calves nontender Assessment and plan: Continue with postoperative care Hematocrit 22 transfuse 2 units Objective Vital signs: Vital Signs Temp Pulse Resp BP Pulse Ox 08/16/17 06:38 98.9 F 91 16 122/69 95 08/16/17 04:23 98.6 F 99 15 155/77 96 08/15/17 23:37 99.2 F 108 16 106/65 97 08/15/17 19:46 98.4 F 102 17 118/60 95 08/15/17 15:58 100.0 F H 95 17 93/53 93 08/15/17 12:30 99.1 F 98 18 117/68 99 08/15/17 11:22 112/69 08/15/17 08:15 99.1 F 90 20 115/68 99 Intake and Output 08/15/17 08/16/17 08/16/17 23:59 07:59 15:59 Intake Total 1050 / 1050 50 / 50 Output Total 475 / 475 Balance 575 / 575 50 / 50 Intake: IV Fluids 1050 / 1050 50 / 50 Lactated Ringers 1,000 ML @ 75 1000 / 1000 mls/hr IVC .[id number] Rx#: [id number] Cleocin Premix 600 MG/50 ML 600 50 / 50 50 / 50 mg In 50 ml @ 50 mls/hr IVPB Q8HR [facility] Rx#:[id number] Output: Urine 475 / 475 - Labs CBC & BMP: 08/16/17 05:26 08/16/17 05:26 Labs: Abnormal lab results WBC 13.2 K/mcL (4.3-11.1) H D 08/14/17 19:17 Hgb 7.4 g/dL (12.9-16.9) L D 08/16/17 05:26 Hct 22.6 % (37.5-50.1) L 08/16/17 05:26 MCV 79.9 fL (83.0-100.0) L 08/14/17 19:17 MCH 24.7 pg (28.0-33.3) L 08/14/17 19:17 MCHC 31.0 g/dL (31.6-35.5) L 08/14/17 19:17 RDW 17.2 % (11.5-14.5) H 08/14/17 19:17 Neutrophils # 9.0 K/mcL (1.6-8.9) H 08/14/17 19:17 Potassium 3.3 mEq/L (3.5-4.5) L 08/16/17 05:26 BUN 38 mg/dL (8-26) H 08/16/17 05:26 Creatinine 2.30 mg/dL (0.72-1.25) H 08/16/17 05:26 Est GFR ( Amer) 36 (> 60) L 08/16/17 05:26 Est GFR (Non-Af Amer) 29 (> 60) L 08/16/17 05:26 Glucose 167 mg/dL (70-99) H 08/16/17 05:26 Creatine Kinase 527 Units/L (30-200) H 08/15/17 04:45 - VTE Documentation of Mechanical Device: Venous foot pump, device Consult Discharge Plan - Plan Referrals: Barb Humphreys CNP [Primary Care Provider] -
--- NOTE | 2017-08-16 08:02 | Discharge Summary ---
Date of Encounter: 08/17/17 Time of Encounter: 08:16 - Discharge Diagnosis (1) Aseptic loosening of prosthetic hip Priority: Primary Status: Chronic Qualifiers: Encounter type: subsequent encounter Qualified Code(s): T84.038D - Mechanical loosening of other internal prosthetic joint, subsequent encounter; Z96.649 - Presence of unspecified artificial hip joint; Z96.649 - Presence of unspecified artificial hip joint (2) Morbid obesity with BMI of 45.0-49.9, adult Priority: Secondary Status: Chronic (3) S/P revision of total hip Priority: Primary Status: Acute (4) Acute blood loss anemia Priority: Primary Status: Acute (5) HTN (hypertension) Priority: Secondary Status: Chronic Qualifiers: Hypertension type: essential hypertension Qualified Code(s): I10 - Essential (primary) hypertension (6) HLD (hyperlipidemia) Priority: Secondary Status: Chronic Qualifiers: Hyperlipidemia type: unspecified Qualified Code(s): E78.5 - Hyperlipidemia , unspecified (7) Chronic renal insufficiency, stage III (moderate) Priority: Secondary Status: Chronic - Discharge Medications Prescriptions: Aspirin Enteric Coated [Aspirin EC] 325 mg PO Q12H #30 tablet. Aspirin Enteric Coated [Aspirin EC] 325 mg PO BID #30 tablet. OxyCODONE Immed Rel [Roxicodone 5 MG] 5 mg PO Q6HR PRN #24 tablet PRN Reason: Pain OxyCODONE Immed Rel [Roxicodone 5 MG] 5 mg PO Q4HR PRN #24 tablet PRN Reason: Pain Sulfamethoxazole/Trimeth DS [Bactrim DS] 1 each PO BID #30 tablet Sulfamethoxazole/Trimeth DS [Bactrim DS] 1 each PO BID #30 tablet Home Medications: Allopurinol [Zyloprim 100 MG] 100 mg PO DAILY 01/16/17 [History] Atenolol/Chlorthalidone [Tenoretic 50 Tablet] 1 each PO DAILY 01/16/17 [History] Aspirin Enteric Coated [Aspirin EC] 325 mg PO BID #30 tablet. 08/17/17 [Rx] Aspirin Enteric Coated [Aspirin EC] 325 mg PO Q12H #30 tablet. 08/17/17 [Rx] OxyCODONE Immed Rel [Roxicodone 5 MG] 5 mg PO Q4HR PRN #24 tablet 08/17/17 [Rx] OxyCODONE Immed Rel [Roxicodone 5 MG] 5 mg PO Q6HR PRN #24 tablet 08/17/17 [Rx] Sulfamethoxazole/Trimeth DS [Bactrim DS] 1 each PO BID #30 tablet 08/17/17 [Rx] Sulfamethoxazole/Trimeth DS [Bactrim DS] 1 each PO BID #30 tablet 08/17/17 [Rx] Allergies/Adverse Reactions: 3 Allergy/AdvReac Type Severity Reaction Status Date / Time codeine Allergy See Verified 08/15/17 09:13 Comments Labs on day of discharge: Labs from last 24 hours 08/16/17 08/16/17 08/16/17 05:26 05:26 05:26 Hgb 7.4 L D Hct 22.6 L Sodium 138 Potassium 3.3 L Chloride 102 Carbon Dioxide 24 BUN 38 H Creatinine 2.30 H Est GFR ( Amer) 36 L Est GFR (Non-Af Amer) 29 L BUN/Creatinine Ratio 17 Glucose 167 H Calculated Osmolality 299 Calcium 9.4 Creatine Kinase Random Vancomycin < 0.4 08/15/17 04:45 Hgb Hct Sodium 141 Potassium 3.9 Chloride 103 Carbon Dioxide 17 L BUN 31 H Creatinine 2.60 H Est GFR ( Amer) 31 L Est GFR (Non-Af Amer) 25 L BUN/Creatinine Ratio 12 Glucose 317 H Calculated Osmolality 311 H Calcium 9.2 Creatine Kinase 527 H Random Vancomycin Preliminary micro results at discharge 08/14/17 17:32 Wound Culture - Preliminary Left Hip No growth. - Impressions ITS Impressions Hip X-Ray 08/14/17 17:14 IMPRESSION: Status post left total hip arthroplasty without complication. Expected postoperative changes of the soft tissues. D/ / Arnoldo Miller MD / Arnoldo Miller MD Interpreting Provider: Arnoldo Miller MD Hip X-Ray 08/14/17 19:20 IMPRESSION: Intraoperative examination of the left hip arthroplasty revision. D/ / Benson Oconnell MD / Benson Oconnell MD Interpreting Provider: Benson Oconnell MD Date of admission: 08/14/17 09:10 Primary care physician: Barb Humphreys CNP Consults: 08/14/17 21:36 Consult to Nurse Navigator [CONS] Routine Comment: ortho navigator Consult to Occupational Therapy [CONS] Routine Comment: Evaluate, develop and implement POC Reason for Consult: total hip replacement Consult to Physical Therapy [CONS] Routine Comment: Evaluate, develop and implement POC Reason for Consult: total hip replacement 50% weight bearing Consult to Transfusion Aide [CONS] Routine Reason for SW Consult: post op joint replacement RT Post Op Consult [CONS] Routine - Patient Status Disposition: Home Health Service Condition: Good Functional capacity at discharge: uses cane/walker Overall status at discharge: patient is progressing back to baseline - Discharge Instructions Follow Up With: Barb Humphreys CNP [Primary Care Provider] - - Hospital Course Hospital course: Mr. Gallardo is a 56 year old male Revision left total hip patient was acute blood loss anemia and received 2 units. Cultures negative The patient had an uneventful postoperative course. They received antibiotics and physical therapy and were discharged in stable condition. There will follow -up in the office in 2 weeks. - Time Spent with Patient Total time spent providing and/or coordinating discharge services: - VTE Documentation of Mechanical Device: Venous foot pump, device
[2017-08-16] MEDS ORDERED: Furosemide 20 MG/2 ML VIAL IVP PRN (08:29)
[2017-08-16] MEDS ORDERED: 0.9 % Sodium Chloride 250 ML IVC SCH (08:30)
[2017-08-16] MEDS: Multivit/Ca/Min/Fe/FA 1 TAB TABLET PO SCH (08:33)
[2017-08-16] MEDS: Ascorbic Acid 500 MG TABLET PO SCH ×2 (08:33→17:20)
--- NOTE | 2017-08-16 14:20 | Event Note ---
Date of Encounter: 08/16/17 Time of Encounter: 11:50 PCR- POD#2 LEFT hip revision PCR - Patient seen at bedside. Labs: H/H 7.4/22.6 - receiving 2 units RBC, preliminary wound cx show no growth Pain control: Adequate Participating in PT. All questions and concerns addressed. Educated on use of incentive spirometer, ambulation, and hydration. Patient educated on post-operative restrictions and care. Addressed: see above. D/C plan: therapy recommends inpatient rehab, authorization pending.
--- NOTE | 2017-08-16 14:23 | Physician Discharge Referral ---
ExtendedCare Referral Info Transfer To: [facility] Provider in Charge: Dr. Dewey - Diagnosis (1) Arthritis of left hip Priority: Secondary Status: Chronic (2) HTN (hypertension) Priority: Secondary Status: Chronic (3) Obesity Priority: Secondary Status: Chronic (4) HLD (hyperlipidemia) Priority: Secondary Status: Chronic (5) Chronic renal insufficiency, stage III (moderate) Priority: Secondary Status: Chronic (6) Aseptic loosening of prosthetic hip Priority: Secondary Status: Chronic (7) Morbid obesity with BMI of 45.0-49.9, adult Priority: Secondary Status: Chronic (8) S/P revision of total hip Priority: Primary Status: Acute (9) Acute blood loss anemia Priority: Secondary Status: Acute Expected Duration of Placement: < 30 days Prognosis: Good Aware of Diagnosis: Patient Aware of Prognosis: Patient - Transfer Medications Home Medications: Allopurinol [Zyloprim 100 MG] 100 mg PO DAILY 01/16/17 [History] Atenolol/Chlorthalidone [Tenoretic 50 Tablet] 1 each PO DAILY 01/16/17 [History] Allergies/Adverse Reactions: 3 Allergy/AdvReac Type Severity Reaction Status Date / Time codeine Allergy See Verified 08/15/17 09:13 Comments - Respiratory Orders Smoking Cessation: Smoking cessation has been advised. For more information, call the [place] Tobacco Quit Line at 9-063-DODLNOW. - Ancillary Orders May use pressure relief devices daily prn, May go on CASSY w/family/respon democrat w /meds at nurse discretion PRN, May consult with Dentist, Outdoor Adventure Guides, Mimeograph Operator PRN - Mobility Orders Chair, Ambulate - Rehabiliation Orders Rehab Potential: Good Rehab Orders: Evaluation for Physical Therapy, Evaluation for Occupational Therapy - Treatments Skin tear care topically daily PRN per policy - Diet Orders Regular CERTIFICATION: I certify that the transfer of the above named patient to an Extended Care Facility is necessary for the continuing treatment of the diagnosis listed. The above information is true and accurate reflection of patient's current condition. Confidential - Redisclosure prohibited without a patient's written consent.
[2017-08-16] MEDS ORDERED: Clindamycin 600 MG/50 ML 600 MG/50 ML IV.SOLN IVPB SCH (17:10)
--- NOTE | 2017-08-16 18:23 | Electrocardiograph Report ---
[address] [place] [address] Test Date: 2017-08-14 Pat Name: Dany Gallardo Department: 115 Room: [facility] Gender: M Medical Attendant: MIKE : 1960 Requested By: Yang Dewey Order Number: [id number] Reading MD: Arnoldo Knight DO Measurements Intervals [place] Rate: 59 P: 41 LA: 213 QRS: 15 QRSD: 130 T: 132 QT: 438 QTc: 438 Interpretive Statements SINUS BRADYCARDIA WITH FIRST DEGREE AV BLOCK POSSIBLE LATERAL MYOCARDIAL INFARCTION, OF INDETERMINATE AGE Electronically Signed On 08-16-2017 18:21:41 EST by Arnoldo Knight DO
[2017-08-16 18:52] LABS: Hematocrit 27.4 % (37.5-50.1); Hemoglobin 8.9 g/dL (12.9-16.9)
[2017-08-17] MEDS: Clindamycin 600 MG/50 ML 600 MG/50 ML IV.SOLN IVPB SCH ×2 (01:57→09:34)
[2017-08-17] MEDS: *HR* Enoxaparin 30 MG/0.3 ML SYRINGE SQ SCH (06:28)
--- NOTE | 2017-08-17 08:17 | Orthopedics Progress Note ---
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 Qualifiers: Encounter type: subsequent encounter Qualified Code(s): T84.038D - Mechanical loosening of other internal prosthetic joint, subsequent encounter; Z96.649 - Presence of unspecified artificial hip joint; Z96.649 - Presence of unspecified artificial hip joint (2) Morbid obesity with BMI of 45.0-49.9, adult Current Visit: Yes Status: Chronic (3) S/P revision of total hip Current Visit: Yes Status: Acute (4) Acute blood loss anemia Current Visit: Yes Status: Acute (5) HTN (hypertension) Current Visit: No Status: Chronic Qualifiers: Hypertension type: essential hypertension Qualified Code(s): I10 - Essential (primary) hypertension (6) HLD (hyperlipidemia) Current Visit: No Status: Chronic Qualifiers: Hyperlipidemia type: unspecified Qualified Code(s): E78.5 - Hyperlipidemia , unspecified (7) Chronic renal insufficiency, stage III (moderate) Current Visit: No Status: Chronic Subjective Interval history: Patient was seen this morning doing well without complaints. Afebrile vital signs stable. Operative extremity: Neurovascularly intact Dressing clean dry and intact Calves nontender Assessment and plan: Continue with postoperative care Cultures negative discharged today Objective Vital signs: Vital Signs Temp Pulse Resp BP Pulse Ox 08/17/17 07:31 98.7 F 70 15 118/70 96 08/17/17 00:54 99.2 F 76 18 114/67 94 08/16/17 18:32 99.2 F 85 18 116/70 97 08/16/17 18:07 98.1 F 89 16 107/60 96 08/16/17 15:06 98.2 F 82 16 113/64 97 08/16/17 14:56 98.6 F 81 16 111/67 96 08/16/17 14:18 99.4 F 83 15 108/68 96 08/16/17 11:24 98.4 F 94 16 99/53 98 08/16/17 11:12 98.5 F 80 16 114/97 97 08/16/17 10:38 98.8 F 98 18 124/65 95 Intake and Output 08/16/17 08/17/17 08/17/17 23:59 07:59 15:59 Intake Total 520 / 520 Output Total 300 / 300 790 / 790 Balance 220 / 220 -790 / -790 Intake: IV Fluids 50 / 50 Cleocin Premix 600 MG/50 ML 600 50 / 50 mg In 50 ml @ 50 mls/hr IVPB Q8H [facility] Rx#:[id number] Oral 120 / 120 Blood Product 350 / 350 Rbcs Leuko Poor As-1 Unit 350 / 350 [id number] Output: Urine 300 / 300 790 / 790 Other: Meal Breakfast Percent of Meal Consumed 90% - Labs CBC & BMP: 08/16/17 18:38 08/16/17 05:26 Labs: Abnormal lab results WBC 13.2 K/mcL (4.3-11.1) H D 08/14/17 19:17 Hgb 8.9 g/dL (12.9-16.9) L D 08/16/17 18:38 Hct 27.4 % (37.5-50.1) L 08/16/17 18:38 MCV 79.9 fL (83.0-100.0) L 08/14/17 19:17 MCH 24.7 pg (28.0-33.3) L 08/14/17 19:17 MCHC 31.0 g/dL (31.6-35.5) L 08/14/17 19:17 RDW 17.2 % (11.5-14.5) H 08/14/17 19:17 Neutrophils # 9.0 K/mcL (1.6-8.9) H 08/14/17 19:17 Potassium 3.3 mEq/L (3.5-4.5) L 08/16/17 05:26 BUN 38 mg/dL (8-26) H 08/16/17 05:26 Creatinine 2.30 mg/dL (0.72-1.25) H 08/16/17 05:26 Est GFR ( Amer) 36 (> 60) L 08/16/17 05:26 Est GFR (Non-Af Amer) 29 (> 60) L 08/16/17 05:26 Glucose 167 mg/dL (70-99) H 08/16/17 05:26 Creatine Kinase 527 Units/L (30-200) H 08/15/17 04:45 - VTE Documentation of Mechanical Device: Venous foot pump, device Consult Discharge Plan - Plan Referrals: Barb Humphreys CNP [Primary Care Provider] - Prescriptions: Aspirin Enteric Coated [Aspirin EC] 325 mg PO Q12H #30 tablet. Aspirin Enteric Coated [Aspirin EC] 325 mg PO BID #30 tablet. OxyCODONE Immed Rel [Roxicodone 5 MG] 5 mg PO Q6HR PRN #24 tablet PRN Reason: Pain OxyCODONE Immed Rel [Roxicodone 5 MG] 5 mg PO Q4HR PRN #24 tablet PRN Reason: Pain Sulfamethoxazole/Trimeth DS [Bactrim DS] 1 each PO BID #30 tablet Sulfamethoxazole/Trimeth DS [Bactrim DS] 1 each PO BID #30 tablet
[2017-08-17] MEDS: Multivit/Ca/Min/Fe/FA 1 TAB TABLET PO SCH (09:31)
[2017-08-17] MEDS: Ascorbic Acid 500 MG TABLET PO SCH (09:31)
[2017-08-17 12:17] VITALS: BP 121/72
[2017-08-17] MEDS ORDERED: FLUARIX QUAD 2017-18 36MOS UP/PF 0.5 ML SYRINGE IM ONE (14:25)
== END 2017-08-17 16:50 | disposition home health service (06) | DRG 467 ==
LOC: 3ANU → 3NENU 19:07
PROVIDERS: ADMIT Orthopaedic Surgery; ATTEND Orthopaedic Surgery